=== PATIENT | female | born 1940 | race Caucasian/White ===

== ENCOUNTER 2018-09-17 10:07 | Emergency (ER) | payer OTHER, MEDICARE ==
[2018-09-17 10:14] VITALS: PULSE 79; TEMP 97.5; BMI 24.5
[2018-09-17] MEDS ORDERED: ACETAMINOPHEN 500 MG TABLET (FP) PO ONE (10:23)
[2018-09-17] MEDS ORDERED: ACETAMINOPHEN 500 MG TABLET (FP) ONE (10:35)
--- NOTE | 2018-09-17 10:52 | PDOC ---
History of Present Illness - General Chief Complaint: Injury Stated Complaint: right groin pain [place] Time Seen by Provider: 09/17/18 10:14 History Source: Patient Exam Limitations: No Limitations - History of Present Illness Initial Comments: 09/17/18 10:46 78-year-old female history of hypertension status post trip and fall. Patient states she had a fall several days ago while vacationing in [place] she was caring an umbrella was carried by the wind and fell on her side is unclear of the exact direction that she fell however sustaining injury to her right forearm and her right hip. Patient has been ambulating since her fall describes pain when she internally rotates her hip denies any bruising or swelling no knee or ankle injury no head trauma no LOC is a has ecchymosis to the right forearm but denies any pain with range of motion of her wrist elbow or shoulder. Past History - Past Medical History Allergies/Adverse Reactions: Allergies Allergy/AdvReac Type Severity Reaction Status Date / Time No Known Allergies Allergy Verified 09/17/18 10:09 COPD: No HTN: Yes Hypercholesterolemia: Yes - Suicide/Smoking/Psychosocial Hx Smoking History: Never smoked Hx Alcohol Use: No Drug/Substance Use Hx: No Substance Use Type: None Review of Systems - Review of Systems Constitutional: No: Chills, Diaphoresis HEENTM: No: Blurred Vision Respiratory: No: Cough, Orthopnea, Shortness of Breath Cardiac (ROS): No: Chest Pain : No: Burning, Dysuria Musculoskeletal: Yes: Joint Pain. No: Back Pain Integumentary: Yes: Bruising Neurological: No: Numbness, Paresthesia, Weakness All Other Systems: Reviewed and Negative *Physical Exam - Vital Signs Last Vital Signs Temp Pulse Resp BP Pulse Ox 97.5 F L 79 18 205/103 H 100 09/17/18 10:08 09/17/18 10:08 09/17/18 10:08 09/17/18 10:08 09/17/18 10:08 - Physical Exam Comments: 09/17/18 10:48 Awake alert no acute distress head is atraumatic. Lungs are clear bilaterally heart is regular without any murmurs rubs or gallops abdomen is soft and nontender extremities are warm and well-perfused right hip is tender anteriorly near the pubic symphysis she has full range of motion of the right hip. No ecchymosis or swelling noted knee and ankle are nontender with full range of motion. The right upper extremity is noted for ecchymosis over the dorsum of the right forearm the wrist is with full range of motion nontender no snuffbox tenderness the elbow and shoulder full range of motion nontender. Distally patient is neurovascularly intact with 2+ radial and DP pulses no midline spinal tenderness GCS of 15 skin is with ecchymosis over the right forearm as described otherwise unremarkable Moderate Sedation - Procedure Monitoring Vital Signs: Procedure Monitoring Vital Signs Temperature 97.5 F L 09/17/18 10:08 Pulse Rate 79 09/17/18 10:08 Respiratory Rate 18 09/17/18 10:08 Blood Pressure 205/103 H 09/17/18 10:08 O2 Sat by Pulse Oximetry (%) 100 09/17/18 10:08 ED Treatment Course - RADIOLOGY Radiology Studies Ordered: Category Date Time Status FOREARM- RIGHT [RAD] Stat Radiology 09/17/18 10:22 Taken HIP & PELVIS-RIGHT [RAD] Stat Radiology 09/17/18 10:21 Taken Medical Decision Making - Medical Decision Making 09/17/18 10:49 Differential diagnosis includes contusion of the right hip, muscle strain, occult fracture, forearm fracture. Versus contusion. Plan x-rays of the right forearm right hip and pelvis pain control Tylenol likely DC with orthopedic surgeon follow-up *DC/Admit/Observation/Transfer Diagnosis at time of Disposition: Contusion, Strain of muscle of right groin region - Discharge Dispostion Disposition: HOME Condition at time of disposition: Improved - Referrals Referrals: Oliver Soriano MD [Staff Physician] - - Patient Instructions Printed Discharge Instructions: Groin Strain, Contusion Additional Instructions: Your x-rays appear hip and pelvis in addition to her right forearm are negative for any acute bony fractures. He likely have a strain of your muscle. However should pain persist beyond 8 few weeks he should follow-up with an orthopedic surgeon please see referral for Dr. Soriano he can take Tylenol 500 mg every 6 hours as needed for pain return for any problems or concerns - Post Discharge Activity
[2018-09-17 17:47] VITALS: BP 180/98
--- NOTE | 2018-09-17 18:11 | PDOC ---
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 pt called. asked to speak to her son who is an orthopedic surgeon. d/ w pt son following , DR Donis [phone] who states he will be sure she has followup ultrasound of abdominal aorta. offered for pt to come back to ed this evenig for us, she states she will decline until AM. states she rechecked her bp at home was 150 /70. called dr butler, unable to get through answering service successfully [phone]. will try again.
== END 2018-09-17 11:02 | disposition home or self-care (01) ==
LOC: FER 10:07
DX: S39.011A Strain of muscle, fascia and tendon of abdomen, initial encounter (principal); W18.09XA Striking against other object with subsequent fall, initial encounter; Y93.89 Activity, other specified; Y92.89 Other specified places as the place of occurrence of the external cause; S70.01XA Contusion of right hip, initial encounter
CPT/HCPCS: 73090-TC-RT-FY; 73523-TC-FY; 99281-25

== ENCOUNTER 2019-03-08 14:49 | Emergency (ER) | payer OTHER, MEDICARE ==
[2019-03-08 15:08] VITALS: BP 198/82; PULSE 82; TEMP 99.2; BMI 24.5
--- NOTE | 2019-03-08 15:25 | PDOC ---
Documentation entered by Yakelin Mcclellan SCRIBE, acting as scribe for Lakisha Pickering MD. Lakisha Pickering MD: This documentation has been prepared by the Eleuterio rowley Nirvannie, SCRIBE, under my direction and personally reviewed by me in its entirety. I confirm that the documentation accurately reflects all work, treatment, procedures, and medical decision making performed by me. History of Present Illness - General Chief Complaint: Injury Stated Complaint: FALL ON CHEST THIS AM Time Seen by Provider: 03/08/19 14:55 History Source: Patient Exam Limitations: No Limitations - History of Present Illness Initial Comments: 03/08/19 15:14 The patient is a 78 year old female, with a significant past medical history of hypertension and hyperlipidemia, who presents to the emergency department s/p mechanical fall with, substernal chest pain. As per patient, she was walking her dog outside at which time she tripped over him subsequently falling onto her chest and abrading her right knee. She notes attempting to play golf after the fall at which time she began to experience reproducible chest pressure, prompting her arrival to the ED. She denies any palpitations or diaphoresis. She denies any LOC or head/neck injuries. She denies recent fevers, chills, headache or dizziness. She denies recent nausea, vomiting, diarrhea or constipation. She denies recent dysuria, frequency, urgency or hematuria. Allergies: NKDA Past surgical history: None reported. Social history: Nonsmoker. Denies EtOH use and recreational drug use. Past History - Past Medical History Allergies/Adverse Reactions: Allergies Allergy/AdvReac Type Severity Reaction Status Date / Time No Known Allergies Allergy Verified 03/08/19 14:50 Home Medications: Ambulatory Orders Ibuprofen [Advil -] 600 mg PO ONCE 03/08/19 COPD: No HTN: Yes Hypercholesterolemia: Yes - Suicide/Smoking/Psychosocial Hx Smoking History: Never smoked Hx Alcohol Use: No Drug/Substance Use Hx: No Substance Use Type: None Review of Systems - Review of Systems Able to Perform ROS?: Yes Comments:: 03/08/19 15:14 GENERAL/CONSTITUTIONAL: No fever or chills. No weakness. HEAD, EYES, EARS, NOSE AND THROAT: No change in vision. No ear pain or discharge. No sore throat. CARDIOVASCULAR: +Chest pain. RESPIRATORY: No cough, wheezing, or hemoptysis. GASTROINTESTINAL: No nausea, vomiting, diarrhea or constipation. GENITOURINARY: No dysuria, frequency, or change in urination. MUSCULOSKELETAL: No joint or muscle swelling or pain. No neck or back pain. SKIN: No rash. NEUROLOGIC: No headache, vertigo, loss of consciousness, or change in strength/ sensation. ENDOCRINE: No increased thirst. No abnormal weight change. HEMATOLOGIC/LYMPHATIC: No anemia, easy bleeding, or history of blood clots. ALLERGIC/IMMUNOLOGIC: No hives or skin allergy. All Other Systems: Reviewed and Negative *Physical Exam - Vital Signs Last Vital Signs Temp Pulse Resp BP Pulse Ox 99.2 F 82 20 198/82 H 100 03/08/19 14:50 03/08/19 14:50 03/08/19 14:50 03/08/19 14:50 03/08/19 14:50 - Physical Exam Comments: GENERAL: Awake, alert, and fully oriented, in no acute distress HEAD: No signs of trauma EYES: PERRLA, EOMI, sclera anicteric, conjunctiva clear ENT: Auricles normal inspection, hearing grossly normal, nares patent, oropharynx clear without exudates. Moist mucosa NECK: Normal ROM, supple, no lymphadenopathy, JVD, or masses LUNGS: Breath sounds equal, clear to auscultation bilaterally. No wheezes, and no crackles. +Mod tenderness over the sternum. No ecchymosis, no skin lesions, no crepitus HEART: Regular rate and rhythm, normal S1 and S2, no murmurs, rubs or gallops ABDOMEN: Soft, nontender, normoactive bowel sounds. No guarding, no rebound. No masses EXTREMITIES: Normal range of motion, no edema. No clubbing or cyanosis. No cords, erythema, or tenderness NEUROLOGICAL: Cranial nerves II through XII grossly intact. Normal speech, normal gait. Motor and sensation intact SKIN: Warm, Dry, normal turgor, no rashes or lesions noted. *DC/Admit/Observation/Transfer Diagnosis at time of Disposition: Contusion Qualifiers: Encounter type: initial encounter Contusion area: thoracic wall Contusion of thoracic wall detail: front wall of thorax Laterality: unspecified laterality Qualified Code(s): S20.219A - Contusion of unspecified front wall of thorax, initial encounter - Discharge Dispostion Disposition: HOME Condition at time of disposition: Stable Decision to Admit order: No - Referrals - Patient Instructions - Post Discharge Activity
[2019-03-08] MEDS ORDERED: ACETAMINOPHEN 325 MG TABLET (FP) PO ONE (15:33)
[2019-03-08] MEDS ORDERED: ACETAMINOPHEN 325 MG TABLET (FP) ONE (15:37)
== END 2019-03-08 15:47 | disposition home or self-care (01) ==
LOC: FER 14:49
DX: S20.219A Contusion of unspecified front wall of thorax, initial encounter (principal); W01.0XXA Fall on same level from slipping, tripping and stumbling without subsequent striking against object, initial encounter; Y93.K1 Activity, walking an animal; Y92.89 Other specified places as the place of occurrence of the external cause
CPT/HCPCS: 71046-TC-FY; 99281-25

== ENCOUNTER 2019-07-23 22:01 | Emergency (ER) | payer OTHER, MEDICARE ==
[2019-07-23 22:15] VITALS: BP 199/99; PULSE 74; TEMP 98; BMI 24.5
[2019-07-23] MEDS ORDERED: IBUPROFEN 600 MG TABLET (FP) PO ONE (22:16)
--- NOTE | 2019-07-23 22:43 | PDOC ---
Documentation entered by Sara Hernandez SCRIBE, acting as scribe for Alen Cano MD. Alen Cano MD: This documentation has been prepared by the David rowley Brenda, SCRIBE, under my direction and personally reviewed by me in its entirety. I confirm that the documentation accurately reflects all work , treatment, procedures, and medical decision making performed by me. History of Present Illness - General Chief Complaint: Injury Stated Complaint: LT WRIST INJURY History Source: Patient Exam Limitations: No Limitations - History of Present Illness Initial Comments: 07/23/19 22:25 The patient is an 79 year old female, with a significant PMH of HTN and HLD, who presents to the emergency department with pain to the left wrist. Patient reports that she was doing a stand-up push-ups on a bar, at which time, the bar collapsed and she fell forward. She notes that at the time of the fall, she felt no pain. It wasnt until recently that she began to feel tenderness and pain to her left wrist. The patient denies chest pain, shortness of breath, headache and dizziness. Denies fever, chills, nausea, vomiting, diarrhea and constipation. Denies any urinary symptoms. Allergies: NKA Past surgical history: None reported Social history: Denies any tobacco use, alcohol use, or illicit drug use. General: No fevers or chills, no weakness, no weight loss HEENT: No change in vision. No sore throat,. No ear pain CardioVascular: No chest pain or shortness of breath Respiratory:No cough, or wheezing. Gastrointestinal: no nausea, vomiting, diarrhea or constipation, No rectal bleeding Genitourinary: No dysuria, hematuria, or frequency Musculoskeletal: (+) Pain on left wrist. No joint or muscle swelling Neurologic: No headache, vertigo, dizziness or loss of consciousness Psychiatric: nor depression Skin: No rashes or easy bruising Endocrine: no increased thirst or abnormal weight change Allergic: no skin or latex allergy All other systems reviewed and normal GENERAL: The patient is awake, alert, and fully oriented, in no acute distress. HEAD: Normal with no signs of trauma. EYES: Pupils equal, round and reactive to light, extraocular movements intact, sclera anicteric, conjunctiva clear. EXTREMITIES: (+) Tenderness over the dorsum of the lateral wrist . No ecchymosis. No swelling. No deformity. Normal range of motion, no edema. NEUROLOGICAL: Normal speech, normal gait. PSYCH: Normal mood, normal affect. SKIN: Warm, Dry, normal turgor, no rashes or lesions noted. 07/23/19 22:40 Assessment and plan: This is an 79-year-old female who was at the gym working out when a piece of equipment malfunctioned and she injured her wrist. Patient initially had no pain but over the next 8 hours or so patient developed discomfort to the point that she came in for evaluation. X-ray was done which was negative for any acute pathology Patient was given Motrin and discharged. Past History - Past Medical History Allergies/Adverse Reactions: Allergies Allergy/AdvReac Type Severity Reaction Status Date / Time No Known Allergies Allergy Verified 03/08/19 14:50 COPD: No HTN: Yes Hypercholesterolemia: Yes - Psycho Social/Smoking Cessation Hx Smoking History: Never smoked Have you smoked in the past 12 months: No Hx Alcohol Use: No Drug/Substance Use Hx: No Substance Use Type: None *Physical Exam - Vital Signs Last Vital Signs Temp Pulse Resp BP Pulse Ox 98 F 74 16 199/99 H 98 07/23/19 22:11 07/23/19 22:11 07/23/19 22:11 07/23/19 22:11 07/23/19 22:11 ED Treatment Course - RADIOLOGY Radiology Studies Ordered: Category Date Time Status WRIST-LEFT [RAD] Stat Radiology 07/23/19 22:15 Taken Discharge - Discharge Information Problems reviewed: Yes Clinical Impression/Diagnosis: Wrist pain, left Condition: Stable Disposition: HOME - Admission No - Follow up/Referral Referrals: Dennise Umanzor [Primary Care Provider] - - Patient Discharge Instructions Additional Instructions: Tylenol or Motrin as needed for pain. Wear the Graeme wrap as needed for comfort. Return to the emergency department immediately with ANY new, persistent or worsening symptoms. Continue any medications as previously prescribed by your physician. You should follow up with your primary doctor as soon as possible regarding today's emergency department visit. . Please make sure your doctor reviews the results of your emergency evaluation. Thank you for coming to the Emergency Department today for your care. It was a pleasure to see you today. Please note that your evaluation is INCOMPLETE until you follow-up with your doctor. - Post Discharge Activity
== END 2019-07-23 22:48 | disposition home or self-care (01) ==
LOC: FER 22:01
DX: M25.532 Pain in left wrist (principal); I10 Essential (primary) hypertension; E78.5 Hyperlipidemia, unspecified; W19.XXXA Unspecified fall, initial encounter; Y93.A9 Activity, other involving cardiorespiratory exercise; Y92.39 Other specified sports and athletic area as the place of occurrence of the external cause
CPT/HCPCS: 73110-TC-LT-FY; 99282-25

== ENCOUNTER 2020-08-02 10:28 | Day surgery (SDC) | payer OTHER, MEDICARE ==
[2020-07-28 11:39] VITALS: BMI 24.5
[2020-08-02] MEDS ORDERED: TROPICAMIDE 1% OPHTH SOLN 15 ML BOTTLE ONE (11:16)
[2020-08-02] MEDS ORDERED: PHENYLEPHRINE 2.5% OPHTH SOLN 15 ML BOTTLE ONE (11:16)
[2020-08-02] MEDS ORDERED: KETOROLAC TROMETHAMINE 0.5% EYE DROP 1 DROP DROPS ONE (11:16)
[2020-08-02] MEDS ORDERED: OFLOXACIN 0.3% OPHTHALMIC SOLUTION 5 ML BOTTLE ONE (11:16)
[2020-08-02] MEDS ORDERED: CYCLOPENTOLATE HCL 1% OPHTH SOLN 2 ML BOTTLE ONE (11:16)
[2020-08-02] MEDS: OFLOXACIN 0.3% OPHTHALMIC SOLUTION 5 ML BOTTLE OS SCH ×5 (11:30→11:50)
[2020-08-02] MEDS: PHENYLEPHRINE 2.5% OPHTH SOLN 15 ML BOTTLE OS SCH ×5 (11:30→11:50)
[2020-08-02] MEDS: CYCLOPENTOLATE HCL 1% OPHTH SOLN 2 ML BOTTLE OS SCH ×5 (11:30→11:50)
[2020-08-02] MEDS: TROPICAMIDE 1% OPHTH SOLN 15 ML BOTTLE OS SCH ×5 (11:30→11:50)
[2020-08-02] MEDS: KETOROLAC TROMETHAMINE 0.5% EYE DROP 1 DROP DROPS OS SCH ×5 (11:30→11:50)
[2020-08-02] MEDS ORDERED: KETOROLAC TROMETHAMINE 30 MG/1 ML VIAL ONE (12:32)
[2020-08-02] MEDS ORDERED: MIDAZOLAM HCL 2 MG/2 ML SINGLE DOSE VIAL ONE (12:33)
[2020-08-02] MEDS ORDERED: EPI-SHUGARCAINE (EPINEPHRINE 0.025% & LIDOCAINE-PF 0.75%) 4ML ONE (12:42)
[2020-08-02] MEDS ORDERED: NEO/POLYMYX B SULF/DEXAMETH OPHTHALMIC 5ML BOTTLE ONE (12:42)
[2020-08-02] MEDS ORDERED: POVIDONE-IODINE 5% OPHTHALMIC PREP 30 ML SOLUTION ONE (12:42)
[2020-08-02] MEDS ORDERED: TETRACAINE 0.5% OPHTH SOLN 2 ML BOTTLE ONE (12:42)
[2020-08-02] MEDS ORDERED: BACITRACIN/POLYMYXIN OPH OINT 3.5 GM TUBE ONE (12:42)
[2020-08-02] MEDS ORDERED: BETAXOLOL HCL 0.25% OPHTHALMIC 10 ML DROPSBTL ONE (12:42)
[2020-08-02] MEDS ORDERED: ACETAMINOPHEN 325 MG TABLET (FP) PO PRN (13:35)
[2020-08-02 14:13] VITALS: TEMP 97.7
[2020-08-02 14:18] VITALS: BP 164/77; PULSE 58
== END 2020-08-02 14:40 | disposition home or self-care (01) ==
LOC: FASU 10:28
PROVIDERS: ATTEND Ophthalmology
PROC: 08RK3JZ Replacement of Left Lens with Synthetic Substitute, Percutaneous Approach (ICD-10-PCS; principal; 2020-08-02 13:07)
DX: H26.9 Unspecified cataract (principal)

== ENCOUNTER 2020-08-23 10:33 | Day surgery (SDC) | payer OTHER, MEDICARE ==
[2020-08-04 09:07] VITALS: BMI 24.5
[~2020-08-23 10:33] MED LIST: OFLOXACIN 0.3% OPHTHALMIC SOLUTION 5 ML BOTTLE OD SCH
[2020-08-23] MEDS ORDERED: CYCLOPENTOLATE HCL 1% OPHTH SOLN 2 ML BOTTLE ONE (10:42)
[2020-08-23] MEDS ORDERED: PHENYLEPHRINE 2.5% OPHTH SOLN 15 ML BOTTLE ONE (10:42)
[2020-08-23] MEDS ORDERED: OFLOXACIN 0.3% OPHTHALMIC SOLUTION 5 ML BOTTLE ONE (10:42)
[2020-08-23] MEDS ORDERED: TROPICAMIDE 1% OPHTH SOLN 15 ML BOTTLE ONE (10:42)
[2020-08-23] MEDS ORDERED: KETOROLAC TROMETHAMINE 0.5% EYE DROP 1 DROP DROPS ONE (10:42)
[2020-08-23] MEDS: CYCLOPENTOLATE HCL 1% OPHTH SOLN 2 ML BOTTLE OD SCH ×5 (10:55→11:15)
[2020-08-23] MEDS: TROPICAMIDE 1% OPHTH SOLN 15 ML BOTTLE OD SCH ×5 (10:55→11:15)
[2020-08-23] MEDS: KETOROLAC TROMETHAMINE 0.5% EYE DROP 1 DROP DROPS OD SCH ×5 (10:55→11:15)
[2020-08-23] MEDS: PHENYLEPHRINE 2.5% OPHTH SOLN 15 ML BOTTLE OD SCH ×5 (10:55→11:15)
[2020-08-23 10:59] VITALS: TEMP 98.1
[2020-08-23] MEDS ORDERED: MIDAZOLAM HCL 2 MG/2 ML SINGLE DOSE VIAL ONE (11:55)
[2020-08-23] MEDS ORDERED: BACITRACIN/POLYMYXIN OPH OINT 3.5 GM TUBE ONE (12:38)
[2020-08-23] MEDS ORDERED: EPINEPHrine/PF 1 MG/1 ML (1:1,000) AMPULE ONE (12:38)
[2020-08-23] MEDS ORDERED: TETRACAINE 0.5% OPHTH SOLN 2 ML BOTTLE ONE (12:39)
[2020-08-23] MEDS ORDERED: EPI-SHUGARCAINE (EPINEPHRINE 0.025% & LIDOCAINE-PF 0.75%) 4ML ONE (12:39)
[2020-08-23] MEDS ORDERED: NEO/POLYMYX B SULF/DEXAMETH OPHTHALMIC 5ML BOTTLE ONE (12:39)
[2020-08-23] MEDS ORDERED: POVIDONE-IODINE 5% OPHTHALMIC PREP 30 ML SOLUTION ONE (12:39)
[2020-08-23] MEDS ORDERED: BETAXOLOL HCL 0.25% OPHTHALMIC 10 ML DROPSBTL ONE (12:39)
[2020-08-23] MEDS ORDERED: ACETAMINOPHEN 325 MG TABLET (FP) PO PRN (12:42)
[2020-08-23 13:30] VITALS: BP 122/61; PULSE 59
== END 2020-08-23 13:30 | disposition home or self-care (01) ==
LOC: FASU 10:33
PROVIDERS: ATTEND Ophthalmology
PROC: 08RJ3JZ Replacement of Right Lens with Synthetic Substitute, Percutaneous Approach (ICD-10-PCS; principal; 2020-08-23 12:15)
DX: H26.9 Unspecified cataract (principal)

== ENCOUNTER 2022-02-09 09:32 | Emergency (ER) | payer OTHER, MEDICARE ==
[2022-02-09 09:52] VITALS: BP 172/80; PULSE 65; TEMP 97.7; BMI 24.5
== END 2022-02-09 12:02 | disposition home or self-care (01) ==
LOC: FER 09:32
DX: R07.89 Other chest pain (principal); M79.641 Pain in right hand; W01.0XXA Fall on same level from slipping, tripping and stumbling without subsequent striking against object, initial encounter
CPT/HCPCS: 71046-TC-FY; 73110-TC-RT-FY; 73130-TC-RT-FY; 99284-25